=== PATIENT | female | born 1990 | race African-American/Black ===

== ENCOUNTER 2017-01-27 10:56 | Emergency (ER) | payer OTHER ==
[~2017-01-27] VITALS: Ht 165.1 cm; Wt 60.0 kg
[2017-01-27] MEDS ORDERED: KETOROLAC 60MG/2ML VIAL IM ONE (11:45)
[2017-01-27 11:52] VITALS: BP 118/60
== END 2017-01-27 14:50 | disposition home or self-care (01) ==
LOC: ER 10:56
DX: S80.01XA Contusion of right knee, initial encounter (principal); J45.909 Unspecified asthma, uncomplicated; V43.52XA Car driver injured in collision with other type car in traffic accident, initial encounter; Y93.89 Activity, other specified; Y92.488 Other paved roadways as the place of occurrence of the external cause
CPT/HCPCS: 81025; 96372; 99283; J1885